=== PATIENT | male | born 1930 | race Hispanic/Latino ===

== ENCOUNTER 2017-06-05 07:57 | Inpatient (IN) | payer MEDICARE, OTHER ==
[2017-06-05] MEDS ORDERED: NACL 0.9% 1000 ML 1,000 ML IV ONE (08:23)
[2017-06-05] MEDS ORDERED: LOPRESSOR IV ONE ×2 (08:33→08:36)
[2017-06-05] MEDS ORDERED: CARDIZEM ONE (08:40)
[2017-06-05] MEDS ORDERED: CARDIZEM IV ONE ×2 (08:42→11:30)
--- NOTE | 2017-06-05 08:54 | Emergency Department Report ---
HPI - General Chief Complaint: Weakness Time Seen by Provider: 06/05/17 08:41 - HPI HPI: 86-year-old male presents to the emergency department via EMS from home with complaint of some left-sided weakness, left arm and left chest pain that began about 4:56 AM this morning. The patient woke up with the complaints of weakness and then got up and walked around his house multiple times outside for exercise and then began feeling as if the left side of his body was stiff. Around this time the patient also developed some chest and arm pain and called EMS. He was found to have a very elevated heart rate that appeared consistent with SVT and was given 6 mg of adenosine in route without any relief or change. The patient has a history of coronary artery disease with AZ, bypass surgery, TIA 2, chronic atrial fibrillation, hypertension. He did not take anything himself or symptoms prior to presentation. He denies any tobacco or illicit drug use or abuse. His primary care physician is Dr. Castaneda and his matrix supervisor is Dr. Barba. No recent travel or sick contacts at home. ED Past Medical Hx - Past Medical History Hx Hypertension: Yes Hx CVA: Yes Hx Heart Attack/AMI: Yes Hx Diabetes: Yes Additional medical history: gout. hypothyroid. high cholesterol - Surgical History Hx Coronary Stent: Yes Hx Open Heart Surgery: Yes - Social History Smoking Status: Former Smoker Substance Use Type: None - Medications Home Medications: Home Medications Medication Instructions Recorded Confirmed Last Taken Type Nitrofurantoin Ector/M-Cryst 100 mg PO Q12HR #14 capsule 03/07/15 06/05/17 Rx [Macrobid] ALPRAZolam [Xanax TAB] 0.5 mg PO QHS 06/05/17 06/05/17 06/04/17 History Allopurinol [Zyloprim] 300 mg PO QDAY 06/05/17 06/05/17 06/04/17 History Aspirin [Aspirin BABY CHEW TAB] 81 mg PO QDAY 06/05/17 06/05/17 06/04/17 History Carvedilol [Coreg] 3.125 mg PO DAILY 06/05/17 06/05/17 Unknown History Cholecalciferol (Vitamin D3) 4,000 unit PO Q48H 06/05/17 06/05/17 06/04/17 History [Vitamin D3 2,000 unit] Furosemide [Lasix] 20 mg PO QDAY 06/05/17 06/05/17 06/04/17 History ISOSORBIDE MONOnitrate [Imdur ER] 30 mg PO DAILY 06/05/17 06/05/17 06/04/17 History Insulin Glargine,Hum.rec.anlog 35 units SQ QAM 06/05/17 06/05/17 06/04/17 History [Lantus Solostar] Insulin Glargine,Hum.rec.anlog 50 units SQ QHS 06/05/17 06/05/17 06/04/17 History [Lantus Solostar] Levothyroxine [Synthroid] 75 mcg PO QAM 06/05/17 06/05/17 06/04/17 History Lisinopril [Zestril] 20 mg PO QDAY 06/05/17 06/05/17 06/04/17 History Lovastatin [Altoprev] 10 mg PO QPM 06/05/17 06/05/17 06/04/17 History Omeprazole Magnesium [PriLOSEC Otc] 20 mg PO BID 06/05/17 06/05/17 06/04/17 History Tamsulosin [Flomax] 0.4 mg PO BID 06/05/17 06/05/17 06/04/17 History ED Review of Systems ROS: Stated complaint: WEAKNESS Other details as noted in HPI Comment: All other systems reviewed and negative Constitutional: denies: chills, fever Eyes: denies: eye pain, eye discharge, vision change ENT: denies: ear pain, throat pain Respiratory: shortness of breath. denies: cough Cardiovascular: chest pain. denies: palpitations Gastrointestinal: denies: abdominal pain, nausea, diarrhea Genitourinary: denies: urgency, dysuria Musculoskeletal: myalgia. denies: back pain, joint swelling Skin: denies: rash, lesions Neurological: weakness. denies: headache, numbness, paresthesias Physical Exam - Physical Exam Vital Signs: Vital Signs 06/05/17 06/05/17 08:15 08:16 Temperature 98.3 F 98.3 F Pulse Rate 154 H 155 H Respiratory 18 Rate Blood Pressure 129/88 128/88 O2 Sat by Pulse 98 98 Oximetry Physical Exam: GENERAL: The patient is well-developed well-nourished. HENT: Normocephalic. Atraumatic. Patient has moist mucous membranes. EYES: Extraocular motions are intact. Pupils equal reactive to light bilaterally. NECK: Supple. Trachea is midline. CHEST/LUNGS: Clear to auscultation. There is no respiratory distress noted. HEART/CARDIOVASCULAR: Regular with rapid rate. ABDOMEN: Abdomen is soft, nontender. Patient has normal bowel sounds. There is no abdominal distention. SKIN: Skin is warm and dry. NEURO: The patient is awake, alert, and oriented. The patient is cooperative. The patient has no focal neurologic deficits. The patient has normal speech. MUSCULOSKELETAL: There is no tenderness or deformity. There is no limitation range of motion. There is no evidence of acute injury. ED Course Vital Signs 06/05/17 06/05/17 08:15 08:16 Temperature 98.3 F 98.3 F Pulse Rate 154 H 155 H Respiratory 18 Rate Blood Pressure 129/88 128/88 O2 Sat by Pulse 98 98 Oximetry ED Medical Decision Making - Lab Data Result diagrams: 06/05/17 08:40 06/05/17 08:40 - EKG Data -: EKG Interpreted by Me - EKG Data When compared to previous EKG there are: previous EKG unavailable Interpretation: other (SVT, normal axis, Q waves to the septal leads, T-wave inversions to the lateral leads, 155 bpm) Repeat EKG after Cardizem was also interpreted by myself and shows atrial fibrillation with PVCs, normal axis, rate of [address]-T waves 06/05/17 08:55 - Radiology Data Radiology results: report reviewed, image reviewed interpreted by me: Chest x-ray does not show any acute process. There are no pleural effusions, obvious pneumonia and there is no pneumothorax. Ventilation perfusion scan is low probability for a pulmonary embolism. - Medical Decision Making 86-year-old male presents to the emergency department with complaint of some left-sided weakness, left arm pain, chest pain. Patient was found to have a very fast heart rate and both the EMS and initial EKG in the emergency department appears consistent with SVT. He got 6 mg of adenosine in route and 12 mg of adenosine here and neither converted him. He was given a dose of Cardizem and he slowed down and repeat EKG showed atrial fibrillation with RVR. Eventually the patient needed another dose of Cardizem and was started on Cardizem drip. He is no longer on blood thinners, stopped by his neurologist. He had a elevated and equivocal d-dimer so a VQ scan was done that showed "ability for pulmonary embolism. Patient has been having continued chest discomfort. He was given aspirin to protect his heart. He will be admitted to the hospital for further evaluation and has been accepted for admission by the hospitalist, Dr. Hunter. The patient did complain of some left arm and leg weakness but this was not very apparent on physical examination except for possibly mild left leg weakness when compared to the right. However he is still able to hold it above the gurney. On top of that the patient woke up with these symptoms and therefore does not have an exact last known well time. A CT of the head was done without contrast that did not show any bleed, shift, mass or any acute process. However the patient does not appear to have been a TPA candidate for multiple reasons. - Differential Diagnosis atrial fibrillation, SVT, AZ, CVA Critical Care Time: No Critical care attestation.: If time is entered above; I have spent that time in minutes in the direct care of this critically ill patient, excluding procedure time. ED Disposition Clinical Impression: Atrial fibrillation with RVR, Left-sided weakness Chest pain Qualifiers: Chest pain type: unspecified Qualified Code(s): R07.9 - Chest pain, unspecified Dyspnea Qualifiers: Dyspnea type: unspecified Qualified Code(s): R06.00 - Dyspnea, unspecified Disposition: 09 OP ADMIT IP TO THIS HOSP Is pt being admited?: Yes Condition: Fair Instructions: Chest Pain (ED) Referrals: YANG CASTANEDA MD [Primary Care Provider] - 3-5 Days Time of Disposition: 13:35
[2017-06-05 09:05] LABS: Hematocrit 33.4 % (35.5-45.6); Hemoglobin 11.3 gm/dl (11.8-15.2); Mean Corpuscular HGB Conc 34 % (32-34); Mean Corpuscular Hemoglobin 35 pg (28-32); Mean Corpuscular Volume 104 fl (84-94); Red Blood Count 3.21 M/mm3 (3.65-5.03); Red Cell Distribution Width 15.1 % (13.2-15.2); White Blood Count 6.1 K/mm3 (4.5-11.0)
[2017-06-05 09:06] LABS: Basophils % (Auto) 0.5 % (0.0-1.8); Eosinophils % (Auto) 2.5 % (0.0-4.3)
[2017-06-05 09:07] LABS: Platelet Count 87 K/mm3 (140-440)
--- NOTE | 2017-06-05 09:09 | XRay Report ---
PORTABLE CHEST INDICATION: Weakness. COMPARISON: 08/28/2012 CXR. FINDINGS: Portable, frontal chest radiograph demonstrates mild exaggerated cardiomediastinal silhouette, stable post CABG changes, aortic knob calcifications and increased/crowded lung markings with possibly atelectatic slight bibasilar haziness, left greater than right. No significant pleural effusions. Extrinsic lead artifacts. Demineralized bones with few degenerative changes. CONCLUSION: Stable post CABG changes with slight congestion questioned, as described. Thank you for the opportunity to participate in this patient's care.
[2017-06-05 09:41] LABS: INR 1.3 (0.87-1.13)
[2017-06-05 09:42] LABS: Albumin 3.5 g/dL (3.9-5); Albumin/Globulin Ratio 1.1 %; BUN/Creatinine Ratio 9.47; Bilirubin,Total 1.2 mg/dL (0.1-1.2); Calcium 8.2 mg/dL (8.4-10.2); Chloride 106.7 mmol/L (98-107); Magnesium 1.9 mg/dL (1.7-2.3); Potassium 4.1 mmol/L (3.6-5.0); Total Protein 6.8 g/dL (6.3-8.2)
--- NOTE | 2017-06-05 09:57 | Cat Scan Report ---
CT HEAD WITHOUT CONTRAST: HISTORY: Weakness. Serial contiguous axial images were obtained through the cranium. Intravenous contrast material was not administered. The ventricles are normal in size and appearance. There is no mass effect or midline shift. No areas of abnormally increased or decreased attenuation are seen. No mass lesion is seen. The mastoid air cells and visualized portions of the sinuses are normal. IMPRESSION: Cranial CT scan within normal limits.
[2017-06-05 10:30] LABS: Bacteria,Urine 1+ /HPF (Negative); Bilirubin,Urine NEG (Negative); Blood,Urine NEG (Negative); Ketones,Urine NEG (Negative); Leukocyte Esterase,Urine NEG (Negative); Nitrite,Urine NEG (Negative); Protein,Urine <15 mg/dL mg/dL (Negative); RBC,Urine < 1.0 /HPF (0.0-6.0); Urobilinogen,Urine < 2.0 mg/dL (<2.0); WBC,Urine < 1.0 /HPF (0.0-6.0)
--- NOTE | 2017-06-05 11:27 | Nuclear Medicine Report ---
LUNG SCAN, VENTILATION AND PERFUSION: History: Chest pain. Technique: 5mci of Tc99m MAA was infused for the perfusion images. 15mci XE 133 gas was inhaled for the ventilatory images. Correlation is made with a chest x-ray dated 06/05/17. Findings: Inhalation of Xenon gas demonstrates a normal distribution of the activity throughout both lungs. The wash out phases show no focal retention of activity. After injection of Technetium 99m macroaggregated albumin gamma camera imaging of the lungs in multiple projections demonstrates normal pulmonary contours with a homogeneous distribution of activity. No focal areas of perfusion deficiency are identified. IMPRESSION: Low probability for pulmonary embolus.
[2017-06-05] MEDS ORDERED: CARDIZEM/D5W 100MG/100ML 100 MG/100 ML BAG IV ONE (11:30)
[2017-06-05] MEDS ORDERED: MORPHINE IV ONE (11:45)
--- NOTE | 2017-06-05 11:50 | Admit Criteria Form ---
Admission Criteria Documentation: CARDIOLOGY GRG Clinical Indications for Admission to Inpatient Care ([place]/check or initial the applicable condition/criteria) Hospital admission is needed for appropriate care of the patient because of ANY ONE of the following: [ ] I. Hemodynamic instability as indicated by ALL of the following (1)(2)(3) (4)(5)(6)(7)(8)(9)(10) [ ]a) Vital sign abnormality not readily corrected by appropriate treatment with 12-24 hours for ANY ONE: [ ]i) Hypotension that persists despite appropriate treatment (eg, volume repletion) [ ]ii) Tachycardiathat persists despite appropriate tx ( e.g., analgesia, fluids, sedation as indicated [ ]iii) Orthostatic vital sign changes that persists despite appropriate treatment (eg, volume repletion) [ ]b) Vital sign abnormailty that is severe indicated by ANY ONE of the following: [ ]i) Inadequate perfusion indicated by ANY ONE of the following: [ ] 1) Lactic acidosis (> 2 mmol/L) [ ] 2) New abnormal capillary refill (> 3 seconds) [ ] 3) Reduced urine output [ ] 4) New altered mental status [ ] 5) Myocardial Ischemia [ ] 6) Other metabolic acidosis (arterial pH <7.35 ) not otherwise explained. [ ]ii) Mean arterial pressure[A] less than 60 mm Hg [ ]iii) Mean arterial pressure[A] less than 70 mm Hg after 30 minutes of appropriate treatment (eg, fluid resuscitation) [ ]iv) Sustained heart rate greater than 120 beats per minute in adult or child 6 years or older[B] [ ]v) IV inotropic or vasopressor medication required to maintain adequate blood pressure or perfusion [ ] II. Severe heart failure as indicated by ANY ONE of the following(17)(18) [ ]a) Respiratory distress [ ]b) Hypotension [ ]c) Debilitating anasarca refractory to therapy (eg, tissue breakdown with infection)[C](19) [ ]d) Cardiac arrhythmias of immediate concern [ ]e) Myocardial ischemia [ ] III. Cardiac arrhythmias or findings of immediate concern indicated by ANY ONE of the following (21)(22): [ ] a) Heart rhythms that are inherently dangerous or unstable indicated by ANY ONE of the following (23)(24)(25): [ ] i) Resuscitated ventricular fibrillation or cardiac arrest [ ] ii) Ventricular escape rhythm [ ] iii) Sustained ventricular tachycardia (30 seconds or more of ventricular rhythm at greater than 100 beats per minute) [ ] iv) Nonsustained ventricular tachycardia and ANY ONE of the following: [ ] 1) Suspected cardiac ischemia as cause or consequence of ventricular tachycardia [ ] 2) Acute myocarditis [ ] b) Unstable cardiac conduction defects indicated by ANY ONE of the following(25)(26)(27) [ ] i) Type II second-degree atrioventricular block [ ]ii) Third-degree atrioventricular block [ ]iii) New-onset left bundle branch block with suspected myocardial ischemia [ ]c) Any heart rhythm and ANY ONE of the following (23)(24)(28)(29) (30) [ ] i) Continuous long-term ECG monitoring needed (e.g., initiation of drug requiring monitoring for more than 24 hours) [ ] ii) Patient has automatic implanted cardioverter defibrillator that is repeatedly firing, malfunctioning, or in need of immediate adjustment of settings beyond the scope of ambulatory or observation care [ ]d) Heart rhythms of concern due to ANY ONE of the following: [ ] i) Hypotension [ ] ii) Respiratory distress [ ] iii) Association with other significant symptoms (e.g., bradycardia with syncope or ongoing dizziness, supraventricular tachycardia with chest pain (28)(29)(31) [ ] IV. Monitoring for cardiac contusion beyond the scope of observation care needed [A](32)(33)(34) [ ] V. Surgical or device complication (e.g., valve replacement complication , ICD disfunction or pacemaker dysfunction) (49)(50)(51)(52)(53)(54) [ ] . Inpatient palliative care needed. [F](51)(52) Also use Inpatient Palliative Care Criteria [ ] VII. Nonbacterial thrombotic (marantic) endocarditis(43)(44)(55)(56)(57) [X ] VIII. Cardiology condition, symptom, or finding for which emergency and observation care has failed or are not considered appropriate. [ ] IX. Acute valvular disease requiring inpatient as indicated by ANY ONE of the following (40)(41) [ ]a) Acute valvular regurgitation (42) [ ]b) Noninfectious valvulitis (43)(44) [ ]c) Obstructive valve thrombosis (45)(46) [ ]d) Paravalvular leak(47)(48) [ ]e) Other significant valvular disorder remaining after emergency or observation level of care (as appropriate) [ ]X. Pericardial disease requiring inpatient treatment as indicated by ANY ONE of the following (35)(36)(37)(38) [ ]a) Suspected tamponade [ ]b) Hemopericardium [ ]c) Other significant pericardial disorder remaining after emergency or observation level of care (as appropriate)(39) [ ] XI. Cardiac ischemia beyond scope of emergency and observation care. [ ] XII. Cyanotic heart disease requiring inpatient care as indicated by 1 or more of the following(58)(59)(60): [ ]a) Acute onset of hypoxemia [ ]b) Exacerbation [ ] XIII. Hypertension requiring inpatient treatment as indicated by ANYONE of the following(11)(12)(13)(14): [ ]a) Severe hypertension (SBP greater than 180 mm Hg or DBP greater than 110 mm Hg, or greater than the 95th percentile for age, gender, and height in pediatric patients) that cannot be controlled (eg, to SBP less than 160 mm Hg and DBP less than 100 mm Hg) by emergency department or observation care treatment(15) [ ]b) Acute end organ damage secondary to hypertension (SBP greater than 140 mm Hg or DBP greater than 90 mm Hg) as indicated by ANYONE of the following: [ ] i) Hypertensive encephalopathy (eg, Altered mental status)(16) [ ] ii) Cerebral infarction [ ] iii) Intracranial hemorrhage [ ] iv) Myocardial ischemia or infarction [ ] v) Heart failure (eg, pulmonary edema) [ ] vi) Aortic dissection [ ] vii) Increased creatinine (new) with reduction of more than 50% in estimated glomerular filtration rate from baseline [ ] viii) Papilledema [ ] ix) Retinal hemorrhage [ ] x) Microangiopathic hemolytic anemia [ ] xi) Seizure [ ] xii) Other significant finding secondary to hypertension [ ] XIV. Complications of transplanted heart indicated by ANY ONE of the following(61): [ ]a) Acute graft rejection requiring inpatient management (eg, intravenous imunosuppression)(62)(63) [ ]b) Acute graft heart failure indicated by ANY ONE of the following(64): [ ] i) Hemodynamic instability [ ] ii) Cardiac arrhythmias of immediate concern [ ] iii) Pulmonary edema that is very severe (eg, mechanical ventilation needed, imminent or likely, need for 100% oxygen to keep oxygen saturation above 90%) [ ] iv) Pulmonary edema that is persistent as indicated by ALL of the following: [ ] 1) New need for oxygen therapy to keep oxygen saturation above 90 % (or increased FiO2 need from baseline) [ ] 2) Has not improved sufficiently with emergency department or observation care IV diuretics or other heart failure treatments[E]. [ ] iv) Altered mental status that is severe or persistent [ ] iv) Increased creatinine (new on laboratory test) with reduction of more than 50% in estimated glomerular filtration rate from baseline [ ] iv) Progressively (ongoing) rising creatinine (known from past laboratory test) with reduction of more than 25% in estimated glomerular filtration rate from baseline [ ] iv) Acute renal failure [ ] iv) Acute peripheral ischemia (eg, examination shows pulseless, cool, mottled, or cyanotic extremity) [ ] iv) Pulmonary artery catheter monitoring needed [ ] iv) Other sign or symptom of heart failure requiring inpatient treatment (ie, too severe or not responsive to outpatient and observation care treatment) [ ]c) Infection requiring inpatient management (eg, Hemodynamic instability, need for intravenous antimicrobial treatment)(66)(67)(68)(69)(70) [ ]d) Cardiac allograft vasculopathy requiring inpatient management (eg evidence of cardiacischemia)(71) [ ]e) Other complication of transplanted heart (eg, stroke, severe pulmonary hypertension, severe valvular dysfunction) requiring inpatient management(72) The original [employer] content created by [employer] has been revised. The portions of the content which have been revised are identified through the use of italic text or in bold, and [facility] has neither reviewed nor approved the modified material. All other unmodified content is copyright [facility]. Please see references footnoted in the original [facility] edition 2017 Admission Criteria Met: Yes
[2017-06-05] MEDS ORDERED: MORPHINE ONE (12:02)
[2017-06-05] MEDS ORDERED: ASPIRIN ONE (12:03)
[2017-06-05] MEDS ORDERED: REGLAN PO PRN (12:51)
[2017-06-05] MEDS ORDERED: SODIUM CHLORIDE FLUSH SYRINGE 10 ML IV PRN ×2 (12:51)
[2017-06-05] MEDS ORDERED: PHENERGAN PR PRN (12:51)
[2017-06-05] MEDS ORDERED: PROVENTIL IH PRN (12:51)
[2017-06-05] MEDS ORDERED: MILK OF MAGNESIA PO PRN ×2 (12:51)
[2017-06-05] MEDS ORDERED: ZOFRAN IV PRN (12:51)
[2017-06-05] MEDS ORDERED: DULCOLAX PR PRN ×2 (12:51)
[2017-06-05] MEDS ORDERED: TYLENOL PO PRN ×2 (12:51)
[2017-06-05] MEDS ORDERED: ASPIRIN PO ONE (13:07)
--- NOTE | 2017-06-05 14:34 | History and Physical Report ---
History of Present Illness Date of admission: 06/05/17 12:51 Chief complaint: My chest hurts, and my left arm and leg felt weak History of present illness: 86 YO Male with HTN, CVA, ID, DM, Gout, Hypothyroid, HLD, CAD S/P CABG and Stent Placement presents to ED for evaluation. Pt states that he experienced left-sided weakness, left arm and left chest pain that began about 04:56 hrs when he awakened from sleep. The patient woke up with the complaints of weakness and then got up and walked around his house multiple times outside for exercise and then began feeling as if the left side of his body did not work. At this time,the patient experienced pain in his chest. Pain is 6/10, substernal , sharp, nonradiating, nonradiating, not worsened with exertion, or relieved with rest. EMS notified, and patient found to be in SVT and was given 6 mg of adenosine in route without any relief or change. Pt seen and evaluated in ED and found to have NSR. Past History Past Medical History: acute [place], diabetes, hypertension, hyperlipidemia, hypothyroidism, stroke Past Surgical History: CABG, Other (Stent placement) Social history: . denies: smoking, alcohol abuse, prescription drug abuse, IV drug use Family history: CAD, hypertension Medications and Allergies Allergies Allergy/AdvReac Type Severity Reaction Status Date / Time Penicillins Allergy Swelling Verified 03/07/15 13:39 Sulfa (Sulfonamide Allergy Swelling Verified 06/05/17 10:13 Antibiotics) ciprofloxacin [From Cipro] AdvReac Unknown Verified 03/07/15 13:39 ciprofloxacin HCl AdvReac Unknown Verified 03/07/15 13:39 [From Cipro] Home Medications Medication Instructions Recorded Confirmed Last Taken Type Nitrofurantoin [place]/M-Cryst 100 mg PO Q12HR #14 capsule 03/07/15 06/05/17 Rx [Macrobid] ALPRAZolam [Xanax TAB] 0.5 mg PO QHS 06/05/17 06/05/17 06/04/17 History Allopurinol [Zyloprim] 300 mg PO QDAY 06/05/17 06/05/17 06/04/17 History Aspirin [Aspirin BABY CHEW TAB] 81 mg PO QDAY 06/05/17 06/05/17 06/04/17 History Carvedilol [Coreg] 3.125 mg PO DAILY 06/05/17 06/05/17 Unknown History Cholecalciferol (Vitamin D3) 4,000 unit PO Q48H 06/05/17 06/05/17 06/04/17 History [Vitamin D3 2,000 unit] Furosemide [Lasix] 20 mg PO QDAY 06/05/17 06/05/17 06/04/17 History ISOSORBIDE MONOnitrate [Imdur ER] 30 mg PO DAILY 06/05/17 06/05/17 06/04/17 History Insulin Glargine,Hum.rec.anlog 35 units SQ QAM 06/05/17 06/05/17 06/04/17 History [Lantus Solostar] Insulin Glargine,Hum.rec.anlog 50 units SQ QHS 06/05/17 06/05/17 06/04/17 History [Lantus Solostar] Levothyroxine [Synthroid] 75 mcg PO QAM 06/05/17 06/05/17 06/04/17 History Lisinopril [Zestril] 20 mg PO QDAY 06/05/17 06/05/17 06/04/17 History Lovastatin [Altoprev] 10 mg PO QPM 06/05/17 06/05/17 06/04/17 History Omeprazole Magnesium [PriLOSEC Otc] 20 mg PO BID 06/05/17 06/05/17 06/04/17 History Tamsulosin [Flomax] 0.4 mg PO BID 06/05/17 06/05/17 06/04/17 History Active Meds: Active Medications Acetaminophen (Tylenol) 650 mg PO Q4H PRN PRN Reason: Pain, Mild (1-3) Albuterol (Proventil) 2.5 mg IH Q4HRT PRN PRN Reason: Shortness Of Breath Bisacodyl (Dulcolax) 10 mg DE QDAY PRN PRN Reason: Constipation unrelieved by MOM Diltiazem HCl (Cardizem/D5w 100mg/100ml) 100 mg in 100 mls @ 5 mls/hr IV TITR ONE; 5 MG/HR PRN Reason: Protocol Stop: 06/06/17 07:29 Last Admin: 06/05/17 11:35 Dose: 5 mg/hr, 5 mls/hr Magnesium Hydroxide (Milk Of Magnesia) 30 ml PO Q4H PRN PRN Reason: Constipation Ondansetron HCl (Zofran) 4 mg IV Q8H PRN PRN Reason: N/V unrelieved by Reglan Promethazine HCl (Phenergan) 25 mg DE Q6H PRN PRN Reason: Nausea And Vomiting Simvastatin (Zocor) 20 mg PO QHS CHELSIE Sodium Chloride (Sodium Chloride Flush Syringe 10 Ml) 10 ml IV PRN PRN PRN Reason: LINE FLUSH Review of Systems Constitutional: no weight loss, no weight gain, no fever, no chills Ears, nose, mouth and throat: no ear pain, no ear discharge, no tinnitis Cardiovascular: chest pain, leg edema, no palpitations, no dyspnea on exertion, no paroxysmal nocturnal dyspnea, no claudication, no phlebitis Respiratory: no cough, no cough with sputum, no hemoptysis, no shortness of breath Gastrointestinal: no nausea, no vomiting, no diarrhea, no constipation Genitourinary Male: no discharge, no urinary hesitancy, no incontinence, no testicular lump, no polyuria, no urinary retention Rectal: no pain, no incontinence, no bleeding Musculoskeletal: no neck stiffness, no neck pain, no shooting arm pain, no arm numbness/tingling, no low back pain, no shooting leg pain, no muscle weakness, no myalgias Integumentary: no rash, no pruritis, no redness, no sores Neurological: weakness, numbness, gait dysfunction Psychiatric: no anxiety, no memory loss, no change in sleep habits, no sleep disturbances, no insomnia Endocrine: no cold intolerance, no heat intolerance, no polyphagia, no excessive thirst, no polydipsia Hematologic/Lymphatic: no easy bruising, no easy bleeding Allergic/Immunologic: no urticaria, no allergic rhinitis, no wheezing Exam - Constitutional Vitals: Temp Pulse Resp BP Pulse Ox 98.3 F 85 15 122/65 98 06/05/17 08:30 06/05/17 12:45 06/05/17 12:45 06/05/17 12:45 06/05/17 12:45 General appearance: Present: mild distress - EENT Eyes: Present: PERRL ENT: hearing intact, clear oral mucosa - Neck Neck: Present: supple, normal ROM - Respiratory Respiratory: bilateral: diminished - Cardiovascular Heart Sounds: Present: S1 & S2. Absent: rub, click - Extremities Extremities: pulses symmetrical, No edema Extremity abnormal: edema Peripheral Pulses: within normal limits - Abdominal General gastrointestinal: Present: soft, non-tender, non-distended, normal bowel sounds Male genitourinary: Present: normal - Integumentary Integumentary: Present: clear, warm, dry - Musculoskeletal Musculoskeletal: left sided weakness - Psychiatric Psychiatric: appropriate mood/affect, intact judgment & insight - Neurologic Neurologic: CNII-XII intact, moves all extremities, no gait normal Results - Labs CBC & Chem 7: 06/05/17 08:40 06/05/17 08:40 Assessment and Plan - Patient Problems (1) CVA (cerebral vascular accident) Current Visit: Yes Status: Acute Qualifiers: CVA mechanism: C Precerebral and cerebral artery: P Laterality of affected vessel: L Plan to address problem: Stroke protocol: Antiplatelet therapy, CT head, MRI/MRA Bran, Carotid doppler, PT/OT/Speech Therapy, Swallow evaluation (2) ACS (acute coronary syndrome) Current Visit: Yes Status: Acute Plan to address problem: Serial cardiac enzymes, ekg, telemetry, echo, supportive care, Cardiology team consulted (3) Metabolic acidosis Current Visit: Yes Status: Acute Plan to address problem: IVF resuscitation, monitor uop q shift, supportive care, (4) ARF (acute renal failure) Current Visit: Yes Status: Acute Qualifiers: Acute renal failure type: A (5) Diabetes Current Visit: Yes Status: Acute Qualifiers: Diabetes mellitus type: D Diabetes mellitus complication status: D Diabetes mellitus complication detail: D Diabetic retinopathy severity: D Proliferative retinopathy type: P Diabetes mellitus macular edema: D Diabetes mellitus custodial insulin use: D Laterality: L Chronic kidney disease stage: C Plan to address problem: ADA diet, insulin, accu check (6) DVT prophylaxis Current Visit: Yes Status: Acute
[2017-06-05] MEDS ORDERED: CHOLECALCIFEROL 4000 UNIT PO SCH (15:45)
[2017-06-05] MEDS ORDERED: VITAMIN D3 PO SCH (18:00)
[2017-06-05] MEDS ORDERED: LOVASTATIN 10 MG PO SCH (18:00)
[2017-06-05] MEDS ORDERED: ZOCOR PO SCH (18:00)
[2017-06-05] MEDS: LASIX PO SCH (18:01)
[2017-06-05] MEDS: CARDIZEM PO SCH ×2 (18:03→23:10)
[2017-06-05] MEDS ORDERED: NON-FORMULARY (Omeprazole Magnesium [Prilosec Otc] 20 MG) PO SCH (22:00)
[2017-06-05] MEDS ORDERED: NON-FORMULARY (Insulin Glargine,Hum.Rec.Anlog [Lantus Solostar] 50 UNITS) SQ SCH (22:00)
[2017-06-05] MEDS: FLOMAX PO SCH (23:09)
[2017-06-05] MEDS: ZOCOR PO SCH (23:10)
[2017-06-05] MEDS: PROTONIX PO SCH (23:10)
[2017-06-05] MEDS: XANAX PO SCH (23:10)
[2017-06-05] MEDS: LEVEMIR SUB-Q SCH (23:13)
[2017-06-06] MEDS: LASIX PO SCH (06:47)
[2017-06-06] MEDS: SYNTHROID PO SCH (06:47)
--- NOTE | 2017-06-06 09:41 | Progress Note ---
Assessment and Plan Assessment and plan: (1) CVA (cerebral vascular accident) Current Visit: Yes Status: Acute Qualifiers: CVA mechanism: C Precerebral and cerebral artery: P Laterality of affected vessel: L Plan to address problem: Stroke protocol: Antiplatelet therapy, CT head, MRI/MRA Brain, Carotid doppler, PT/OT/Speech Therapy, Swallow evaluation (2) ACS (acute coronary syndrome) Current Visit: Yes Status: Acute Plan to address problem: Serial cardiac enzymes, ekg, telemetry, echo, supportive care, Cardiology team consulted. Await cardiology decision for stress test versus cardiac catheterization. Patient with elevated d-dimer but pulmonary imaging negative for PE. (3) Metabolic acidosis Current Visit: Yes Status: Acute Plan to address problem: IVF resuscitation, monitor uop q shift, supportive care, (4) ARF (acute renal failure) Current Visit: Yes Status: Acute Qualifiers: Acute renal failure type: A (5) Diabetes Current Visit: Yes Status: Acute Qualifiers: Diabetes mellitus type: D Diabetes mellitus complication status: D Diabetes mellitus complication detail: D Diabetic retinopathy severity: D Proliferative retinopathy type: P Diabetes mellitus macular edema: D Diabetes mellitus residential insulin use: D Laterality: L Chronic kidney disease stage: C Plan to address problem: ADA diet, insulin, accu check (6) DVT prophylaxis Current Visit: Yes Status: Acute History Interval history: No new issues overnight. Hospitalist Physical - Constitutional Vitals: Temp Pulse Resp BP Pulse Ox 97.8 F 76 20 115/66 100 06/05/17 22:00 06/05/17 23:10 06/05/17 22:00 06/05/17 23:10 06/05/17 22:00 General appearance: Present: no acute distress - EENT Eyes: Present: PERRL, EOM intact ENT: hearing intact, clear oral mucosa, dentition normal - Neck Neck: Present: supple, normal ROM - Respiratory Respiratory effort: normal Respiratory: bilateral: CTA - Cardiovascular Rhythm: regular Heart Sounds: Present: S1 & S2. Absent: gallop, rub - Extremities Extremities: no ischemia, No edema, Full ROM - Abdominal General gastrointestinal: soft, non-tender, non-distended, normal bowel sounds - Integumentary Integumentary: Present: clear, warm, dry - Neurologic Neurologic: CNII-XII intact, moves all extremities Results - Labs CBC & Chem 7: 06/05/17 08:40 06/05/17 08:40 Labs: Laboratory Last Values WBC 6.1 K/mm3 (4.5-11.0) 06/05/17 08:40 RBC 3.21 M/mm3 (3.65-5.03) L 06/05/17 08:40 Hgb 11.3 gm/dl (11.8-15.2) L 06/05/17 08:40 Hct 33.4 % (35.5-45.6) L 06/05/17 08:40 MCV 104 fl (84-94) H 06/05/17 08:40 MCH 35 pg (28-32) H 06/05/17 08:40 MCHC 34 % (32-34) 06/05/17 08:40 RDW 15.1 % (13.2-15.2) 06/05/17 08:40 Plt Count 87 K/mm3 (140-440) L 06/05/17 08:40 Lymph % (Auto) 26.8 % (13.4-35.0) 06/05/17 08:40 [place] % (Auto) 11.3 % (0.0-7.3) H 06/05/17 08:40 Eos % (Auto) 2.5 % (0.0-4.3) 06/05/17 08:40 Baso % (Auto) 0.5 % (0.0-1.8) 06/05/17 08:40 Lymph # 1.6 K/mm3 (1.2-5.4) 06/05/17 08:40 [place] # 0.7 K/mm3 (0.0-0.8) 06/05/17 08:40 Eos # 0.2 K/mm3 (0.0-0.4) 06/05/17 08:40 Baso # 0.0 K/mm3 (0.0-0.1) 06/05/17 08:40 Seg Neutrophils % 58.9 % (40.0-70.0) 06/05/17 08:40 Seg Neutrophils # 3.6 K/mm3 (1.8-7.7) 06/05/17 08:40 PT 16.9 Sec. (12.2-14.9) H 06/05/17 08:40 INR 1.30 (0.87-1.13) H 06/05/17 08:40 D-Dimer 686.19 ng/mlDDU (0-234) H 06/05/17 08:40 Sodium 144 mmol/L (137-145) 06/05/17 08:40 Potassium 4.1 mmol/L (3.6-5.0) 06/05/17 08:40 Chloride 106.7 mmol/L (98-107) 06/05/17 08:40 Carbon Dioxide 21 mmol/L (22-30) L 06/05/17 08:40 Anion Gap 20 mmol/L 06/05/17 08:40 BUN 18 mg/dL (9-20) 06/05/17 08:40 Creatinine 1.9 mg/dL (0.8-1.5) H 06/05/17 08:40 Estimated GFR 34 ml/min 06/05/17 08:40 BUN/Creatinine Ratio 9.47 % 06/05/17 08:40 Glucose 88 mg/dL (75-100) 06/05/17 08:40 POC Glucose 82 (70-105) 06/06/17 07:43 Calcium 8.2 mg/dL (8.4-10.2) L 06/05/17 08:40 Phosphorus 3.00 mg/dL (2.5-4.5) 06/05/17 08:40 Magnesium 1.90 mg/dL (1.7-2.3) 06/05/17 08:40 Total Bilirubin 1.20 mg/dL (0.1-1.2) 06/05/17 08:40 AST 24 units/L (5-40) 06/05/17 08:40 ALT 15 units/L (7-56) 06/05/17 08:40 Alkaline Phosphatase 107 units/L (35-129) 06/05/17 08:40 Troponin T 0.015 ng/mL (0.00-0.029) 06/05/17 20:20 Total Protein 6.8 g/dL (6.3-8.2) 06/05/17 08:40 Albumin 3.5 g/dL (3.9-5) L 06/05/17 08:40 Albumin/Globulin Ratio 1.1 % 06/05/17 08:40 Triglycerides 68 mg/dL (2-149) 06/06/17 04:44 Cholesterol 88 mg/dL (50-199) 06/06/17 04:44 LDL Cholesterol Direct 42 mg/dL (50-130) L 06/06/17 04:44 HDL Cholesterol 33 mg/dL (40-59) L 06/06/17 04:44 Cholesterol/HDL Ratio 2.66 % 06/06/17 04:44 TSH 3.160 mlU/mL (0.270-4.200) 06/05/17 08:40 Urine Color Straw (Yellow) 06/05/17 Unknown Urine Turbidity Clear (Clear) 06/05/17 Unknown Urine pH 6.0 (5.0-7.0) 06/05/17 Unknown Ur Specific [place] 1.003 (1.003-1.030) 06/05/17 Unknown Urine Protein <15 mg/dl mg/dL (Negative) 06/05/17 Unknown Urine Glucose (UA) Neg mg/dL (Negative) 06/05/17 Unknown Urine Ketones Neg mg/dL (Negative) 06/05/17 Unknown Urine Blood Neg (Negative) 06/05/17 Unknown Urine Nitrite Neg (Negative) 06/05/17 Unknown Urine Bilirubin Neg (Negative) 06/05/17 Unknown Urine Urobilinogen < 2.0 mg/dL (<2.0) 06/05/17 Unknown Ur Leukocyte Esterase Neg (Negative) 06/05/17 Unknown Urine WBC (Auto) < 1.0 /HPF (0.0-6.0) 06/05/17 Unknown Urine RBC (Auto) < 1.0 /HPF (0.0-6.0) 06/05/17 Unknown U Epithel Cells (Auto) < 1.0 /HPF (0-13.0) 06/05/17 Unknown Urine Bacteria (Auto) 1+ /HPF (Negative) 06/05/17 Unknown
[2017-06-06] MEDS ORDERED: INSULIN GLARGINE HUM REC ANLOG 35 UNIT SQ SCH (10:00)
[2017-06-06] MEDS ORDERED: COREG PO SCH (10:00)
--- NOTE | 2017-06-06 10:08 | Magnetic Resonance Report ---
MRI scan of the brain: History: Stroke. Technique: Multiplanar, multisequence images were obtained without contrast injection. Findings: No evidence of restricted diffusion. Focal 4 mm area of low signal intensity on flair imaging in the right basal ganglia suggesting a chronic lacunar infarct. Periventricular areas of hyperintensity identified bilaterally on flair imaging without corresponding areas of restriction. Normal brainstem and cerebellum. No extra-axial fluid collection. Normal sinuses and mastoid air cells. Impression: Chronic lacunar infarct right basal ganglia. Small vessel ischemic changes. Mild volume loss. No acute intracranial abnormality.
--- NOTE | 2017-06-06 10:13 | Magnetic Resonance Report ---
MRA of the brain with 3-D image post processing: History: Stroke. Findings: Vessels of [place] of [place] are widely patent. No evidence of stenosis, occlusion, aneurysm or dissection. origin of posterior cerebral arteries bilaterally. Codominant vertebral arteries with normal basilar artery. Impression: No evidence of stenoses or occlusion or aneurysm.
[2017-06-06] MEDS: PROTONIX PO SCH ×2 (10:51→21:45)
[2017-06-06] MEDS: ZESTRIL PO SCH (10:51)
[2017-06-06] MEDS: FLOMAX PO SCH ×2 (10:51→21:46)
[2017-06-06] MEDS: CARDIZEM PO SCH ×2 (10:51→17:48)
[2017-06-06] MEDS: ZYLOPRIM PO SCH (10:51)
[2017-06-06] MEDS: IMDUR PO SCH (10:52)
[2017-06-06] MEDS ORDERED: LOPRESSOR IV ONE (11:00)
--- NOTE | 2017-06-06 14:30 | Consultation ---
History of Present Illness Consult date: 06/06/17 Consult reason: atrial fibrillation History of present illness: This is an 86yr old male who was brought in with complaint of left-sided weakness and palpitations. A 12 lead EKG was atrial fibrillation with RVR thus this cardiac consultation. Patient denies chest pain and shortness of breath. He denies dizziness. There was no syncope. 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 Patient gives a history of chronic atrial fibrillation but reports he is no longer on warfarin therapy due to prior hemorrhagic stroke. Patient also reports a history of coronary artery artery with 4 vessel bypass grafting over 15yrs ago. Co- morbidities includes Hypertension, Diabetes and Hypothyroidism. Past History Past Medical History: acute [place], atrial fib, CAD, diabetes, hypertension, hyperlipidemia, hypothyroidism, stroke Past Surgical History: CABG Social history: . denies: smoking, alcohol abuse, prescription drug abuse, IV drug use Family history: CAD, hypertension Medications and Allergies Allergies Allergy/AdvReac Type Severity Reaction Status Date / Time Penicillins Allergy Swelling Verified 03/07/15 13:39 Sulfa (Sulfonamide Allergy Swelling Verified 06/05/17 10:13 Antibiotics) ciprofloxacin [From Cipro] AdvReac Unknown Verified 03/07/15 13:39 ciprofloxacin HCl AdvReac Unknown Verified 03/07/15 13:39 [From Cipro] Home Medications Medication Instructions Recorded Confirmed Last Taken Type Nitrofurantoin [place]/M-Cryst 100 mg PO Q12HR #14 capsule 03/07/15 06/05/17 Rx [Macrobid] ALPRAZolam [Xanax TAB] 0.5 mg PO QHS 06/05/17 06/05/17 06/04/17 History Allopurinol [Zyloprim] 300 mg PO QDAY 06/05/17 06/05/17 06/04/17 History Aspirin [Aspirin BABY CHEW TAB] 81 mg PO QDAY 06/05/17 06/05/17 06/04/17 History Carvedilol [Coreg] 3.125 mg PO DAILY 06/05/17 06/05/17 Unknown History Cholecalciferol (Vitamin D3) 4,000 unit PO Q48H 06/05/17 06/05/17 06/04/17 History [Vitamin D3 2,000 unit] Furosemide [Lasix] 20 mg PO QDAY 06/05/17 06/05/17 06/04/17 History ISOSORBIDE MONOnitrate [Imdur ER] 30 mg PO DAILY 06/05/17 06/05/17 06/04/17 History Insulin Glargine,Hum.rec.anlog 35 units SQ QAM 06/05/17 06/05/17 06/04/17 History [Lantus Solostar] Insulin Glargine,Hum.rec.anlog 50 units SQ QHS 06/05/17 06/05/17 06/04/17 History [Lantus Solostar] Levothyroxine [Synthroid] 75 mcg PO QAM 06/05/17 06/05/17 06/04/17 History Lisinopril [Zestril] 20 mg PO QDAY 06/05/17 06/05/17 06/04/17 History Lovastatin [Altoprev] 10 mg PO QPM 06/05/17 06/05/17 06/04/17 History Omeprazole Magnesium [PriLOSEC Otc] 20 mg PO BID 06/05/17 06/05/17 06/04/17 History Tamsulosin [Flomax] 0.4 mg PO BID 06/05/17 06/05/17 06/04/17 History Active Meds: Active Medications Acetaminophen (Tylenol) 650 mg PO Q4H PRN PRN Reason: Pain, Mild (1-3) Albuterol (Proventil) 2.5 mg IH Q4HRT PRN PRN Reason: Shortness Of Breath Allopurinol (Zyloprim) 300 mg PO QDAY [facility] Last Admin: 06/06/17 10:51 Dose: 300 mg Alprazolam (Xanax) 0.5 mg PO QHS [facility] Last Admin: 06/05/17 23:10 Dose: 0.5 mg Aspirin (Baby Aspirin) 81 mg PO QDAY CHELSIE Bisacodyl (Dulcolax) 10 mg DE QDAY PRN PRN Reason: Constipation unrelieved by MOM Carvedilol (Coreg) 3.125 mg PO DAILY [facility] Last Admin: 06/06/17 10:51 Dose: 3.125 mg Cholecalciferol (Vitamin D3) 4,000 unit PO Q48H [facility] Diltiazem HCl (Cardizem) 30 mg PO BID [facility] Last Admin: 06/06/17 10:51 Dose: 30 mg Furosemide (Lasix) 20 mg PO DAILY@0600 [facility] Last Admin: 06/06/17 06:47 Dose: 20 mg Insulin Detemir (Levemir) 35 units SUB-Q QAM [facility] Insulin Detemir (Levemir) 50 units SUB-Q QHS [facility] Last Admin: 06/05/17 23:13 Dose: 50 units Isosorbide Mononitrate (Imdur) 30 mg PO DAILY [facility] Last Admin: 06/06/17 10:52 Dose: 30 mg Levothyroxine Sodium (Synthroid) 75 mcg PO DAILY@0600 [facility] Last Admin: 06/06/17 06:47 Dose: 75 mcg Lisinopril (Zestril) 20 mg PO QDAY [facility] Last Admin: 06/06/17 10:51 Dose: 20 mg Magnesium Hydroxide (Milk Of Magnesia) 30 ml PO Q4H PRN PRN Reason: Constipation Ondansetron HCl (Zofran) 4 mg IV Q8H PRN PRN Reason: N/V unrelieved by Reglan Pantoprazole Sodium (Protonix) 20 mg PO BID [facility] Last Admin: 06/06/17 10:51 Dose: 20 mg Promethazine HCl (Phenergan) 25 mg DE Q6H PRN PRN Reason: Nausea And Vomiting Simvastatin (Zocor) 20 mg PO QHS [facility] Last Admin: 06/05/17 23:10 Dose: 20 mg Sodium Chloride (Sodium Chloride Flush Syringe 10 Ml) 10 ml IV PRN PRN PRN Reason: LINE FLUSH Tamsulosin HCl (Flomax) 0.4 mg PO BID [facility] Last Admin: 06/06/17 10:51 Dose: 0.4 mg Physical Examination Vital Signs Pulse Resp BP Pulse Ox 157 H 10 L 135/93 98 06/05/17 07:55 06/05/17 07:55 06/05/17 07:55 06/05/17 07:55 General appearance: no acute distress HEENT: Positive: PERRL Neck: Positive: trachea midline Cardiac: Positive: irregularly irregular Results 06/05/17 08:40 06/05/17 08:40 Lipids 06/06/17 Range/Units 04:44 Triglycerides 68 (2-149) mg/dL Cholesterol 88 (50-199) mg/dL HDL Cholesterol 33 L (40-59) mg/dL Cholesterol/HDL Ratio 2.66 % Assessment and Plan Atrial fibrillation with RVR on coreg and diltiazem for rate control pt reports he is not on anticoagulation due to prior hemorrhagic CVA Acute renal failure Left sided weakness Hx of CAD s/p CABG Hypothyroidism Diabetes Hypertension Recommendations: Obtain prior records from [facility]. We will increase diltiazem to 60mg every 6hrs. Stop carvediolol and replace with metoprolol for optimal rate control.
[2017-06-06] MEDS: BABY ASPIRIN PO SCH (17:48)
[2017-06-06] MEDS: LEVEMIR SUB-Q SCH ×2 (17:50→21:50)
[2017-06-06] MEDS: LOPRESSOR PO SCH (21:45)
[2017-06-06] MEDS: XANAX PO SCH (21:45)
[2017-06-06] MEDS: ZOCOR PO SCH (21:46)
[2017-06-07] MEDS: CARDIZEM PO SCH ×3 (01:08→12:15)
[2017-06-07 05:51] LABS: BUN/Creatinine Ratio 10.58; Calcium 8.2 mg/dL (8.4-10.2)
[2017-06-07 05:52] LABS: Chloride 104.4 mmol/L (98-107); Potassium 4.4 mmol/L (3.6-5.0)
[2017-06-07 05:58] LABS: Basophils % (Auto) 0.7 % (0.0-1.8); Eosinophils % (Auto) 3.8 % (0.0-4.3); Hematocrit 31.4 % (35.5-45.6); Hemoglobin 10.5 gm/dl (11.8-15.2); Mean Corpuscular HGB Conc 33 % (32-34); Mean Corpuscular Hemoglobin 35 pg (28-32); Mean Corpuscular Volume 105 fl (84-94); Red Blood Count 2.98 M/mm3 (3.65-5.03); Red Cell Distribution Width 14.8 % (13.2-15.2); White Blood Count 6.8 K/mm3 (4.5-11.0)
[2017-06-07 06:04] LABS: Platelet Count 76 K/mm3 (140-440)
[2017-06-07] MEDS: LASIX PO SCH (06:40)
[2017-06-07] MEDS: SYNTHROID PO SCH (06:41)
[2017-06-07] MEDS: LOPRESSOR PO SCH (06:43)
--- NOTE | 2017-06-07 09:30 | Progress Note ---
Assessment and Plan Atrial fibrillation with RVR on coreg and diltiazem for rate control pt is not on anticoagulation due to prior hemorrhagic CVA Acute renal failure Left sided weakness Hx of CAD s/p CABG [facility] 2014: 3 patent grafts. Medical therapy recommended for small vessel disease. Hypothyroidism Diabetes Hypertension Dilated Cardiomyopathy, uncertain duration Echocardiogram demonstrates a dilated cardiomyopathy, severe left ventricle systolic dysfunction, ejection fraction 20%. In addition, there was severe dilatation of both left and right atria. Subjective Date of service: 06/07/17 Interval history: Patient reports he is feeling better. He denies palpitations. Noted hypotensive this morning. Patient remains asymptomatic. Objective Vital Signs Temp Pulse Resp BP Pulse Ox 06/07/17 08:41 97.3 F L 74 18 87/52 98 06/07/17 06:44 72 92/56 06/07/17 06:43 72 92/56 06/07/17 05:34 97.9 F 73 20 100/58 94 06/07/17 01:08 76 105/73 06/07/17 00:18 97.5 F L 72 20 94/55 96 06/06/17 22:00 99 H 06/06/17 21:45 80 120/80 06/06/17 21:10 20 06/06/17 19:38 98.1 F 81 20 120/29 98 06/06/17 17:10 98.2 F 75 18 109/63 0 L 06/06/17 14:42 98.1 F 109 H 20 106/78 98 06/06/17 12:00 98 06/06/17 10:00 87 - Physical Examination General: No Apparent Distress HEENT: Positive: PERRL Neck: Positive: trachea midline Cardiac: Positive: Reg Rate and Rhythm Lungs: Positive: Decreased Breath Sounds Neuro: Positive: Grossly Intact - Labs and Meds CBC 06/07/17 Range/Units 04:49 WBC 6.8 (4.5-11.0) K/mm3 RBC 2.98 L (3.65-5.03) M/mm3 Hgb 10.5 L (11.8-15.2) gm/dl Hct 31.4 L (35.5-45.6) % Plt Count 76 L (140-440) K/mm3 Lymph # 2.1 (1.2-5.4) K/mm3 [place] # 0.8 (0.0-0.8) K/mm3 Eos # 0.3 (0.0-0.4) K/mm3 Baso # 0.0 (0.0-0.1) K/mm3 Comprehensive Metabolic Panel 06/07/17 Range/Units 04:49 Sodium 140 (137-145) mmol/L Potassium 4.4 (3.6-5.0) mmol/L Chloride 104.4 (98-107) mmol/L Carbon Dioxide 25 (22-30) mmol/L BUN 18 (9-20) mg/dL Creatinine 1.7 H (0.8-1.5) mg/dL Glucose 87 (75-100) mg/dL Calcium 8.2 L (8.4-10.2) mg/dL
[2017-06-07] MEDS: ZYLOPRIM PO SCH (10:23)
[2017-06-07] MEDS: BABY ASPIRIN PO SCH (10:23)
[2017-06-07] MEDS: IMDUR PO SCH (10:23)
[2017-06-07] MEDS: LEVEMIR SUB-Q SCH (10:24)
[2017-06-07] MEDS: ZESTRIL PO SCH (10:24)
[2017-06-07] MEDS: PROTONIX PO SCH (10:24)
[2017-06-07] MEDS: FLOMAX PO SCH (10:42)
[2017-06-07 13:16] VITALS: BP 94/55
--- NOTE | 2017-06-07 15:31 | Discharge Summary ---
Providers - Providers Date of Admission: 06/05/17 12:51 Date of discharge: 06/07/17 Attending physician: PAL GONZALEZ CONSULTS: Cardiology Primary care physician: YANG CASTANEDA Hospitalization Reason for admission: left sided weakness Condition: Fair Pertinent studies: CXR ECHO VQ scan CT head Brain MRI/A Carotid Doppler Hospital course: Patient is 86 years old male with multiple chronic medical conditions - CAD status post CABG/stent placement, Afib, hypertension, prior stroke, diabetes, gout, hypothyroidism presenting for left-sided weakness, left arm and left chest pain; found to to be in SVT and received adenosine, and converted back to NSR. Extensive workup performed; brain imaging revealed chronic lacunar stroke and small vessel ischemic changes witht no acute abnormality. Cardiology was consulted and a repeat echocardiogram showed a significantly decreased EF 20% compared with 40-45% earlier this year. 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 Risk of bleeding discussed weight patient and his family. He is to follow with his machine i cutter and neurologist in 1 week. Discharge diagnoses; Acute systolic heart failure Dilated Cardiomyopathy Atrial fibrillation with RVR CAD Acute renal failure Diabetes Hypothyroidism Old stroke Disposition: DC/TX-06 HOME UND[facility] Time spent for discharge: 35 min Core Measure Documentation - Palliative Care Palliative Care/ Comfort Measures: Not Applicable - Core Measures Any of the following diagnoses?: heart failure - Heart Failure Discharge Requirements ARMINDA/ARB for LVSD if EF <40%: Yes Beta venancio at discharge: Yes Exam - Physical Exam Narrative exam: Seen and examined: - Constitutional Vitals: Temp Pulse Resp BP Pulse Ox 98.5 F 75 16 94/55 99 06/07/17 13:14 06/07/17 13:14 06/07/17 13:14 06/07/17 13:14 06/07/17 13:14 General appearance: Present: no acute distress - Respiratory Respiratory effort: normal Respiratory: bilateral: CTA, negative: rhonchi, wheezing - Cardiovascular Rhythm: irregularly irregular Heart Sounds: Present: S1 & S2, systolic murmur - Extremities Extremities: no ischemia - Abdominal General gastrointestinal: Present: soft, non-tender, non-distended, normal bowel sounds - Neurologic Neurologic: moves all extremities Plan Activity: advance as tolerated, fall precautions Diet: low cholesterol, low salt, diabetic Additional Instructions: Follow up with your machine i cutter and neurologist within 7 days Follow up with: YANG CASTANEDA MD [Primary Care Provider] - 3-5 Days Prescriptions: Apixaban [Eliquis] 2.5 mg PO Q12HR #60 tablet Metoprolol [Lopressor TAB] 50 mg PO BID #60 tablet
[2017-06-07] MEDS ORDERED: LOPRESSOR PO SCH (22:00)
[2017-06-07] MEDS ORDERED: ELIQUIS PO SCH (22:00)
--- NOTE | 2017-06-09 07:04 | Vascular Lab Report ---
CAROTID DUPLEX STUDY: RIGHT PSVEDV CCA PROX: 9620 CCA DIST: 7922 ICA PROX:[id number] ICA MID:[id number] ICA DIST: 9845 ECA: 102 VERT: 32 15 ` LEFT PSVEDV CCA PROX:86025 CCA DIST: 7525 ICA PROX: 9725 ICA MID:[id number] ICA DIST: 9429 ECA: 73 VERT: 37 11 REASON FOR EXAM: Stroke. COMMENTS ON THE RIGHT: Doppler frequency analysis is consistent with 16 to 49 percent diameter reduction of the internal carotid artery. Minimal amount of plaque is seen. The common carotid artery is patent. The external carotid artery is patent. The vertebral artery has antegrade flow. COMMENTS ON THE LEFT: Doppler frequency analysis is consistent with 16 to 49 percent diameter reduction of the internal carotid artery. Minimal amount of plaque is seen. The common carotid artery is patent. The external carotid artery is patent. The vertebral artery has antegrade flow. IMPRESSION: Less than 50% diameter reduction in the internal carotid arteries bilaterally. Consider repeat carotid artery duplex in 12 months.
--- NOTE | 2017-06-13 11:32 | Query- Present on Admission ---
Martha Branch_Luciano Date: 06/13/17 Inverter And [employer]pper/CDS:___Ivonne / Matt Phone#:___[phone] Exercise your independent professional judgment when responding to this query. Questions asked do not imply a particular answer is desired or expected. We greatly appreciate your clarification on this issue. Clinical Documentation States: 86 year old male was admitted on 06/05/17. The discharge summary (Dr. Wolf) states " Patient is 86 years old male with multiple chronic medical conditions, left arm and left chest pain; found to to be in SVT and received adenosine, and converted back to NSR Discharge diagnoses; Acute systolic heart failure " Based on the above clinical scenario and your knowledge of the patient's case please clarify if the diagnosis stated below was present on admission: Diagnosis: ___Acute systolic heart failure Present on admission : [x ] Yes (Y) [ ] Clinically undeterminable(W) [ ] No(N) Please also document response in your Progress Notes and/or Discharge Summary and indicate if the condition was present on admission. MORGAN
== END 2017-06-07 16:24 | disposition home health service (06) | DRG 682 ==
LOC: ED 07:57 → 4A 12:51
PROVIDERS: ADMIT Internal Medicine; ATTEND Internal Medicine
DX: N17.9 Acute kidney failure, unspecified (principal); I50.21 Acute systolic (congestive) heart failure; I24.9 Acute ischemic heart disease, unspecified; E87.2 Acidosis; I42.0 Dilated cardiomyopathy; I48.2 Chronic atrial fibrillation; I10 Essential (primary) hypertension; E11.9 Type 2 diabetes mellitus without complications; M10.9 Gout, unspecified; I25.10 Atherosclerotic heart disease of native coronary artery without angina pectoris; Z88.0 Allergy status to penicillin; Z88.2 Allergy status to sulfonamides; Z88.8 Allergy status to other drugs, medicaments and biological substances; Z86.73 Personal history of transient ischemic attack (TIA), and cerebral infarction without residual deficits; Z87.891 Personal history of nicotine dependence; Z95.5 Presence of coronary angioplasty implant and graft; Z82.49 Family history of ischemic heart disease and other diseases of the circulatory system; I25.2 Old myocardial infarction; I11.0 Hypertensive heart disease with heart failure
CPT/HCPCS: 36415; 70450; 70544; 70551; 71010; 78582; 80048; 80053; 80061; 81001; 82962; 83735; 84100; 84443; 84484; 85025; 85379; 85610; 93005; 93010; 93306; 93880; 96365; 96366; 96375; 96376; A9540; A9558; G8978-GP; G8979-GP; G8980-GP; J0153; J1818; J2270; J7030